=== PATIENT | male | born 1955 | race Caucasian/White ===

== ENCOUNTER 2021-07-07 14:00 | Emergency (ER) | payer OTHER ==
[~2021-07-07] VITALS: Ht 182.9 cm; Wt 74.8 kg
[2021-07-07 14:06] VITALS: BP 156/89
--- NOTE | 2021-07-08 07:51 | EKG ---
[address] [place] [address] ELECTROCARDIOGRAM REPORT Name: ERICH DEE Room #: DEP FAUSTINA Gordillo#: [id number] Admission: 07/07/21 Attend Phys: Discharge: 07/07/21 Date of : 53 Report #: [id number] [facility] ED Test Date: 2021-07-07 Test Time: 14:11:59 Pat Name: ERICH DEE Department: Room: Gender: Traveling Accountant: MILLY : 1955 Requested By: Harsh Thomas Order Number: [id number] MD: Denzel Schultz Measurements Intervals [place] Rate: 90 P: 85 AL: 184 QRS: 46 QRSD: 91 T: 62 QT: 373 QTc: 457 Interpretive Statements Sinus rhythm RSR' in V1 or V2, right VCD No previous ECG available for comparison Electronically Signed On 07-08-2021 7:51:47 CDT by Denzel Schultz [email or web address] <ELECTRONICALLY SIGNED> By: Denzel Schultz MD, [facility] 07/08/21 0751 1411 1411 Denzel Schultz MD, FACC /EPI
== END 2021-07-07 15:28 | disposition home or self-care (01) ==
LOC: ER 14:00
DX: I10 Essential (primary) hypertension (principal); Z88.0 Allergy status to penicillin